=== PATIENT | female | born 1960 | race Caucasian/White ===

== ENCOUNTER 2017-07-27 10:15 | Day surgery (SDC) | payer OTHER ==
[~2017-07-27] VITALS: Ht 170.2 cm; Wt 83.0 kg
[~2017-07-27 10:15] MED LIST: ADVAIR 250/28 DISKU1 IH; B-COMPLEX VIT P1 TAB PO; BISOPROLOL10 MG PO; LASIX20 MG PO; LEVOTHYROXIN0.075 MG PO; LISINOPRIL10 MG PO; MULTIPLE VITAMI1 CAP PO; POTASSIUM20 MEQ PO; VENTOLIN0.09 MG IH
[2017-07-27] MEDS ORDERED: LEVOTHYROXIN (11:06)
[2017-07-27] MEDS ORDERED: ZEBETA 5MG5 MG PO (11:08)
[2017-07-27] MEDS ORDERED: MOBIC15 MG PO (11:09)
[2017-07-27] MEDS ORDERED: ALDACTONE50 MG PO (11:10)
[2017-07-27] MEDS ORDERED: AMOXICILLIN 8751 TAB PO (11:10)
[2017-07-27] MEDS ORDERED: LIVALO2 MG PO (11:11)
[2017-07-27] MEDS ORDERED: LASIX 40MG TABL40 MG PO (11:11)
[2017-07-27] MEDS ORDERED: GLUCOPHAGE XR500 M1 PO (11:13)
[2017-07-27 11:24] VITALS: BP 114/72; PULSE 64; TEMP 97.9
[2017-07-27 12:15] VITALS: BP 99/61; PULSE 63; TEMP 97.4
[2017-07-27 12:30] VITALS: BP 98/67; PULSE 64
[2017-07-27 12:45] VITALS: BP 102/68; PULSE 62
[2017-07-27 15:32] VITALS: BP 95/57; PULSE 60
== END 2017-07-27 13:25 | disposition home or self-care (01) ==
LOC: SDCO 10:15
DX: K21.0 Gastro-esophageal reflux disease with esophagitis (principal); K57.32 Diverticulitis of large intestine without perforation or abscess without bleeding; K56.699 Other intestinal obstruction unspecified as to partial versus complete obstruction; E11.9 Type 2 diabetes mellitus without complications; J45.909 Unspecified asthma, uncomplicated; I10 Essential (primary) hypertension; E03.9 Hypothyroidism, unspecified; Z90.710 Acquired absence of both cervix and uterus; Z79.84 Long term (current) use of oral hypoglycemic drugs; Z87.11 Personal history of peptic ulcer disease; Z83.79 Family history of other diseases of the digestive system
CPT/HCPCS: J2250; J3010; J7030

== ENCOUNTER 2017-09-11 21:21 | Inpatient (IN) | payer OTHER ==
[~2017-09-11] VITALS: Ht 170.2 cm; Wt 77.7 kg
[~2017-09-11 21:21] MED LIST changes: +ALDACTONE50 MG PO; +AMOXICILLIN 8751 TAB PO; +GLUCOPHAGE XR500 M1 PO; +LASIX 40MG TABL40 MG PO; +LEVOTHYROXIN; +LIVALO2 MG PO; +MOBIC15 MG PO; +ROXICODONE 55 MG/TAB PO; +TIROSINT137 MC1 PO; +ZEBETA 5MG5 MG PO
[2017-09-11 22:00] LABS: COLLECTION METHOD CLEAN CATCH
[2017-09-11 22:02] LABS: BASO % 0.3 % (0.0-2.0); EOS # 0.2 (0.0-0.7); EOS % 1.7 % (0-4.0); GRAN # 7.3 (1.4-6.5); GRAN % 76.3 % (42.2-75.2); HEMATOCRIT 38.6 % (37.0-47.0); HEMOGLOBIN 12.4 g/dl (12.5-16.0); LYMPH # 1.4 (1.2-3.4); LYMPH % 14.7 % (20.0-51.0); MEAN CELL VOLUME 88 fl (80.0-100.0); MEAN CORPUSCULAR HEMOGLOBIN 28 pg (27.0-31.0); MEAN CORPUSCULAR HGB CONC 32 g/dl (33.0-37.0); MEAN PLATELET VOLUME 9.8 fl (7.4-10.4); MONO # 0.6 (0.1-0.6); MONO % 6.7 % (1.7-9.3); PLATELET COUNT 274 K/mm3 (130-400); WHITE BLOOD COUNT 9.6 K/mm3 (4.8-10.8)
[2017-09-11 22:10] LABS: HYALINE CAST >12 /lpf; MUCOUS Present /lpf; PH 5 (5-8); URINE APPEARANCE Clear; URINE BACTERIA None Seen /hpf; URINE BILIRUBIN Negative (NEGATIVE); URINE BLOOD Negative (NEGATIVE); URINE COLOR Yellow; URINE GLUCOSE Negative (NEGATIVE); URINE KETONE Negative (NEGATIVE); URINE LEUKOCYTE ESTERASE Negative (NEGATIVE); URINE PROTEIN(semi-quant) Negative (NEGATIVE); URINE RBC 0-2 /hpf; URINE UROBILINOGEN Negative (NEGATIVE); URINE WBC 0-2 /hpf
[2017-09-11 22:16] LABS: ADJUSTED CALCIUM 9.3 mg/dL (8.4-10.2); ALBUMIN 4.7 gm/dL (3.5-5.0); BILIRUBIN,TOTAL 0.3 mg/dL (0.0-1.0); C-REACTIVE PROTEIN 2.6 mg/dL (0.0-0.9); CALCIUM 9.9 mg/dL (8.4-10.2); CREATININE, serum 1.16 mg/dL (0.52-1.25); POTASSIUM 4.1 mmol/L (3.4-5.0); TOTAL PROTEIN 7.6 gm/dL (6.4-8.2)
[2017-09-12 03:58] VITALS: BP 76/47; PULSE 65; TEMP 97.8
[2017-09-12 09:35] VITALS: BP 100/62; PULSE 65; TEMP 98.5
[2017-09-12 14:12] VITALS: BP 100/57; PULSE 52; TEMP 98.1
== END 2017-09-12 17:40 | disposition home or self-care (01) | DRG 392 ==
LOC: COL.ER 21:21 → SURG 22:53
PROVIDERS: Emergency Medicine
DX: K57.32 Diverticulitis of large intestine without perforation or abscess without bleeding (principal); R10.32 Left lower quadrant pain
CPT/HCPCS: J1170; J1200; J1956; J2405; J7030; J7050; Q9967

== ENCOUNTER 2017-09-28 10:30 | Day surgery (SDC) | payer OTHER ==
[~2017-09-28] VITALS: Ht 170.2 cm; Wt 70.1 kg
[2017-09-28 11:15] VITALS: BP 99/71; PULSE 73; TEMP 96.9
[2017-09-28 12:05] VITALS: BP 104/71; PULSE 66; TEMP 97.7
[2017-09-28 12:20] VITALS: BP 103/72; PULSE 66
[2017-09-28 12:35] VITALS: BP 104/68; PULSE 64
[2017-09-28 12:50] VITALS: BP 98/65; PULSE 65
== END 2017-09-28 13:08 | disposition home or self-care (01) ==
LOC: SDCO 10:30
DX: K21.9 Gastro-esophageal reflux disease without esophagitis (principal); K92.1 Melena; K62.4 Stenosis of anus and rectum; E03.9 Hypothyroidism, unspecified; I11.0 Hypertensive heart disease with heart failure; I50.9 Heart failure, unspecified; J45.909 Unspecified asthma, uncomplicated; E11.9 Type 2 diabetes mellitus without complications; Z79.84 Long term (current) use of oral hypoglycemic drugs; Z90.710 Acquired absence of both cervix and uterus
CPT/HCPCS: OP; J2250; J2405; J3010; J7030

== ENCOUNTER → 2017-11-16 | Outpatient (CLI) | payer OTHER | LOC: COL.RAD 08:53 | DX: R10.32 Left lower quadrant pain (principal); Z98.0 Intestinal bypass and anastomosis status; Z90.49 Acquired absence of other specified parts of digestive tract; K57.30 Diverticulosis of large intestine without perforation or abscess without bleeding | CPT/HCPCS: J7050; Q9967 ==

== ENCOUNTER → 2018-03-15 | Outpatient (CLI) | payer OTHER | LOC: COL.RAD 12:30 | DX: E04.2 Nontoxic multinodular goiter (principal); R59.0 Localized enlarged lymph nodes ==

== ENCOUNTER → 2018-05-08 | Outpatient (CLI) | payer OTHER ==
[~2018-05-08] VITALS: Ht 167.6 cm; Wt 74.2 kg
[~2018-05-08] MED LIST changes: +CRESTOR 10MG10 MG PO
[2018-05-08 12:14] VITALS: BP 109/61; PULSE 58
[2018-05-08 14:25] VITALS: BP 116/56; PULSE 59
== END ==
LOC: COL.RAD 11:53
DX: E07.9 Disorder of thyroid, unspecified (principal); E89.0 Postprocedural hypothyroidism; Z90.49 Acquired absence of other specified parts of digestive tract; Z90.710 Acquired absence of both cervix and uterus; Z90.89 Acquired absence of other organs

== ENCOUNTER 2018-06-19 08:05 | Outpatient (RCR) | payer OTHER | END 2018-09-17 | disposition home or self-care (01) | LOC: WSST | DX: R13.12 Dysphagia, oropharyngeal phase (principal) ==

== ENCOUNTER → 2018-06-24 | Outpatient (CLI) | payer OTHER | LOC: COL.RAD 08:00 | DX: R22.1 Localized swelling, mass and lump, neck (principal); R13.10 Dysphagia, unspecified ==

== ENCOUNTER → 2018-07-22 | Outpatient (CLI) | payer OTHER | LOC: COL.RAD 13:04 | DX: K57.30 Diverticulosis of large intestine without perforation or abscess without bleeding (principal); K63.89 Other specified diseases of intestine; M41.86 Other forms of scoliosis, lumbar region; M51.36 Other intervertebral disc degeneration, lumbar region; M46.96 Unspecified inflammatory spondylopathy, lumbar region; Z90.710 Acquired absence of both cervix and uterus; Z98.890 Other specified postprocedural states; Z90.89 Acquired absence of other organs ==

== ENCOUNTER → 2018-10-07 | Outpatient (CLI) | payer OTHER ==
[2018-10-07 16:35] LABS: BASO % 0.1 % (0.0-2.0); EOS % 0.2 % (0-4.0); GRAN # 7.4 (1.4-6.5); GRAN % 85.5 % (42.2-75.2); HEMOGLOBIN 14.1 g/dl (12.5-16.0); LYMPH # 0.8 (1.2-3.4); LYMPH % 9.1 % (20.0-51.0); MEAN CELL VOLUME 87 fl (80.0-100.0); MEAN CORPUSCULAR HEMOGLOBIN 28 pg (27.0-31.0); MEAN CORPUSCULAR HGB CONC 32 g/dl (33.0-37.0); MEAN PLATELET VOLUME 9.5 fl (7.4-10.4); MONO # 0.4 (0.1-0.6); MONO % 4.2 % (1.7-9.3); PLATELET COUNT 306 K/mm3 (130-400); RED BLOOD COUNT 5.07 M/mm3 (4.10-5.30); REDCELL DISTRIBUTION WIDTH-CV 15.6 % (11.5-14.5)
[2018-10-07 16:41] LABS: CALCIUM 9.8 mg/dL (8.4-10.2); CREATININE, serum 0.9 mg/dL (0.52-1.25); POTASSIUM 4.2 mmol/L (3.4-5.0)
== END ==
LOC: COL.LAB 16:02
PROVIDERS: Physician Assistant
DX: R06.09 Other forms of dyspnea (principal)

== ENCOUNTER → 2018-10-14 | Outpatient (CLI) | payer OTHER | LOC: COL.VAS 07:57 | DX: R06.02 Shortness of breath (principal) | CPT/HCPCS: Q9967 ==

== ENCOUNTER → 2019-01-16 | Outpatient (CLI) | payer OTHER ==
[~2019-01-16] MED LIST changes: +TENORMIN 2525 MG/TAB PO; +ZOFRAN 4MG T4 MG/TAB PO
== END ==
LOC: COL.RAD 13:20
DX: K56.699 Other intestinal obstruction unspecified as to partial versus complete obstruction (principal); K57.30 Diverticulosis of large intestine without perforation or abscess without bleeding; Z90.49 Acquired absence of other specified parts of digestive tract; Z90.710 Acquired absence of both cervix and uterus

== ENCOUNTER 2019-01-17 09:07 | Day surgery (SDC) | payer OTHER ==
[~2019-01-17] VITALS: Ht 160 cm; Wt 82.0 kg
[~2019-01-17 09:07] MED LIST changes: -TENORMIN 2525 MG/TAB PO; -ZOFRAN 4MG T4 MG/TAB PO
[2019-01-17] MEDS ORDERED: TENORMIN 2525 MG/TAB PO (09:30)
[2019-01-17 09:44] VITALS: BP 108/69; PULSE 60; TEMP 97
[2019-01-17] MEDS ORDERED: ZOFRAN 4MG T4 MG/TAB PO (09:48)
[2019-01-17 11:10] VITALS: BP 93/62; PULSE 62
--- NOTE | 2019-01-17 11:10 | NUR ---
PT AMBULATES FROM CART TO BAY 8 WITH ASSISTANCE. PT DENIES C/O. VITAL SIGNS STABLE. CALL LIGHT NEXT TO PT. PT DRINKING WATER.
[2019-01-17 11:25] VITALS: BP 89/63; PULSE 60
--- NOTE | 2019-01-17 11:25 | NUR ---
PT CONTINUES TO DENY C/O. VITAL SIGNS STABLE. CALL LIGHT NEXT TO PT. DISCHARGE INSTRUCTIONS REVIEWED WITH PT AND PT . BOTH VERBALIZES UNDERSTANDING. IV DISCONTINUED. CATHETER TIP INTACT. NO REDNESS OR SWELLING. DRESSING DRY AND INTACT. PT AMBULATES TO CAR WITH CREEL CLERK WITH ASSISTANCE.
== END 2019-01-17 11:30 | disposition home or self-care (01) ==
LOC: SDCO 09:07
DX: K57.30 Diverticulosis of large intestine without perforation or abscess without bleeding (principal); K63.89 Other specified diseases of intestine; M19.90 Unspecified osteoarthritis, unspecified site; J45.909 Unspecified asthma, uncomplicated; G89.29 Other chronic pain; E11.9 Type 2 diabetes mellitus without complications; K21.9 Gastro-esophageal reflux disease without esophagitis; E03.9 Hypothyroidism, unspecified; G43.909 Migraine, unspecified, not intractable, without status migrainosus; I11.0 Hypertensive heart disease with heart failure; I50.9 Heart failure, unspecified; K27.9 Peptic ulcer, site unspecified, unspecified as acute or chronic, without hemorrhage or perforation; K56.699 Other intestinal obstruction unspecified as to partial versus complete obstruction; Z83.79 Family history of other diseases of the digestive system; Z90.710 Acquired absence of both cervix and uterus; Z90.49 Acquired absence of other specified parts of digestive tract; Z88.4 Allergy status to anesthetic agent
CPT/HCPCS: J2250; J2405; J3010; J7030

== ENCOUNTER → 2019-02-03 | Outpatient (CLI) | payer OTHER ==
[~2019-02-03] MED LIST changes: +TENORMIN 2525 MG/TAB PO; +ZOFRAN 4MG T4 MG/TAB PO
== END ==
LOC: COL.RAD 07:47
DX: R11.0 Nausea (principal); R10.9 Unspecified abdominal pain
CPT/HCPCS: A9541

== ENCOUNTER 2019-07-03 14:55 | Inpatient (IN) | payer OTHER ==
[~2019-07-03] VITALS: Ht 161.3 cm; Wt 79.2 kg
[2019-09-16] VITALS (12 sets, daily range): BP systolic 93–110; BP diastolic 49–67; PULSE 47–67; TEMP 97.7–98.3
[2019-09-16] MEDS ORDERED: PRIL40 PO (09:58)
[2019-09-16] MEDS ORDERED: GLUCOPHAGE500 MG/TAB PO (10:00)
[2019-09-16] MEDS ORDERED: MELATONIN5 M1 PO (10:02)
[2019-09-16] MEDS ORDERED: TYLENOL PM EXTR1 TA1 PO (10:03)
--- NOTE | 2019-09-16 10:34 | NUR ---
PT ADMITTED AMBULATORY TO ROOM 327. IV TO . PRE OP MEDS GIVEN ORDERED VSS WNL.
--- NOTE | 2019-09-16 14:46 | NUR ---
PT TO ROOM 327 PER BED WITH SEDRICK WEBSTER. PT IS A/O X3 LUNGS CLEAR, BOWEL SOUNDS PRESENT. HR STEADY, VSS, DRESSING TO RIGHT KNEE CDI WITH KATHY OVER DRESSING. PT DENIES PAIN OR N/V AT THIE TIME.
--- NOTE | 2019-09-17 01:48 | NUR ---
PATIENT DOING WELL THROUGHOUT NIGHT. C/O MILD TO MODERATE PAIN THROUGHOUT NIGHT. PRN DIXIE AND MORPHINE GIVEN ALONG WITH SCHEDULED TYLENOL. AMBULATED IN HALLWAY WITH STANDBY ASSIST AND WALKER. BRANDON DRAINING CLEAR YELLOW URINE. IV ABX INFUSING WITHOUT ISSUE. SALINE LOCKED. BULKY DRESSING TO R KNEE CDI. ICE APPLIED TO R KNEE. NO FURTHER NEEDS AT THIS TIME. WILL CONTINUE TO MONITOR.
[2019-09-17 04:00] VITALS: BP 83/53; PULSE 75; TEMP 98.2
--- NOTE | 2019-09-17 04:24 | NUR ---
PATIENTS BP 83/53 CALLED TO MARTINE. IV FLUIDS RESTARTED AT 100 ML/HR PER ORDERS.
[2019-09-17 07:11] LABS: HEMOGLOBIN 12.6 g/dl (12.5-16.0)
--- NOTE | 2019-09-17 07:21 | NUR ---
Report from Katie WEBSTER.
[2019-09-17 08:04] VITALS: BP 100/62; PULSE 77; TEMP 97.9
--- NOTE | 2019-09-17 08:13 | NUR ---
PATIENT SITTING UP IN BED EATING BREAKFAST. DRESSING TO RIGHT KNEE CDI WITH ICE PACK INPLACE. BP IMPROVED. AM MEDS GIVEN ORDERED. PO PAIN MEDS EFFECTIVE WITH GOOD PAIN CONTROL. SCOUT LOPEZ IN TO SEE PT THIS AM.
--- NOTE | 2019-09-17 09:05 | NUR ---
Initial visit; Patient thanked Coo for offering encouragement and prayer following her surgical procedure. Patient has a support system and seems to be doing well on this second day of hospitalization.
--- NOTE | 2019-09-17 09:15 | NUR ---
SUNDAY met with the patient to discuss discharge plan. The patient lives outside of [place] with her , Juan J (ph#[phone]). She reports independence with ADLs and has a walker, access to canes, a toliet riser, and showerchair. The patient's primary care provider is JOHN Lott and she receives her medications at [facility]. She reports no difficulties obtaining her meds. The patient does not have advanced directives and she was not interested in completing them at this time. The patient plans to return home with her and receive outpatient PT at [facility] upon discharge. No additional needs at this time.
--- NOTE | 2019-09-17 09:32 | NUR ---
PT OUT TO LIU WITH THERAPY. PAIN WELL CONTROLLED WITH PO MEDS. STEADY GAIT. PT BECAME LIGHT HEADDED AND DIAPHORETIC IN LIU. PT SAT IN RECLINER AND THEN RETURNED TO ROOM WITH THEARPY.
--- NOTE | 2019-09-17 09:51 | NUR ---
PATIENT FEELING LOOPY, EXPLAINED THAT PAIN MEDICATIONS CAN CAUSE THIS. WILL CONTINUE TO MONITOR.
--- NOTE | 2019-09-17 09:52 | NUR ---
OT WORKING WITH PT AT THIS TIME. CHARLES WAS NOTIFIED OF PT'S LIGHT HEADEDNESS.
[2019-09-17 12:43] VITALS: BP 117/69; PULSE 71; TEMP 98.2
--- NOTE | 2019-09-17 12:48 | NUR ---
PT SITTING UP IN RECLINER VISITING WITH FRIENDS AND EATING LUNCH.
[2019-09-17 17:01] VITALS: BP 112/73; PULSE 69; TEMP 98.7
--- NOTE | 2019-09-17 17:09 | NUR ---
DISCONTINUED BRANDON CATHETER AND DRESSING CHANGE COMPLETED. PT TOLERATED WELL.
--- NOTE | 2019-09-17 19:03 | NUR ---
REPORT TO RICHA WEBSTER.
[2019-09-17 20:17] VITALS: BP 121/78; PULSE 70; TEMP 98.5
--- NOTE | 2019-09-17 20:25 | NUR ---
Pt. sitting up at bedside. Pt. up to bathroom. Pt. is A&OX3, assessment complete. INT to lt. hand patent. Pt. reports pain at a 7 on pain scale, gave pain meds per orders. Dressing to rt. knee CDI. Pt. denies further needs, call light within reach.
[2019-09-17 23:38] VITALS: BP 118/62; PULSE 76; TEMP 97.7
[2019-09-18 02:39] VITALS: BP 117/74; PULSE 73; TEMP 97.8
--- NOTE | 2019-09-18 06:50 | NUR ---
awake resting in bed, bedside shift report received from DARIN Williamson
--- NOTE | 2019-09-18 07:30 | NUR ---
had breakfast and tolerated well, full assessment completed, see interventions for further info,
[2019-09-18 08:25] VITALS: BP 123/72; PULSE 72; TEMP 97.8
--- NOTE | 2019-09-18 09:30 | NUR ---
resting in bed, physical therapy in and worked with patient
--- NOTE | 2019-09-18 09:39 | NUR ---
occupational therapy in to assist patient with having a shower
--- NOTE | 2019-09-18 10:35 | NUR ---
resting in bed after having had shower, c/o pain now 02/14 and medicated with hydrocodone 5mg 2 tabs
[2019-09-18] MEDS ORDERED: NORCO 325 MG-51 TAB PO (11:01)
[2019-09-18] MEDS ORDERED: XARELTO10 MG PO (11:01)
[2019-09-18] MEDS ORDERED: SENNA-S 50 MG-81 TAB PO (11:02)
[2019-09-18] MEDS ORDERED: ROXICODONE 55 MG/TAB PO (11:02)
[2019-09-18 11:14] VITALS: BP 119/71; PULSE 70; TEMP 98.5
--- NOTE | 2019-09-18 11:50 | NUR ---
sitting up in bed having lunch, states relief of pain after pain pill
--- NOTE | 2019-09-18 13:45 | NUR ---
ambulated back to room after therapy and ready for discharge, discharge instructions given to pateint and her , verbalizes understandingy
--- NOTE | 2019-09-18 13:57 | NUR ---
discharged per WC
== END 2019-09-18 13:57 | disposition home or self-care (01) | DRG 470 ==
LOC: EDSTATUS 09-08 10:30 → SDCO 09-08 10:30 → JCC 09-16 08:50
PROVIDERS: ADMIT Orthopaedic Surgery
PROC: 0SRC0J9 Replacement of Right Knee Joint with Synthetic Substitute, Cemented, Open Approach (ICD-10-PCS; principal; 2019-09-16 11:00)
DX: M17.11 Unilateral primary osteoarthritis, right knee (principal); K57.30 Diverticulosis of large intestine without perforation or abscess without bleeding; E78.00 Pure hypercholesterolemia, unspecified; I50.9 Heart failure, unspecified; J45.909 Unspecified asthma, uncomplicated; E89.0 Postprocedural hypothyroidism; K21.9 Gastro-esophageal reflux disease without esophagitis; E11.43 Type 2 diabetes mellitus with diabetic autonomic (poly)neuropathy; K31.84 Gastroparesis; G43.909 Migraine, unspecified, not intractable, without status migrainosus; Z90.49 Acquired absence of other specified parts of digestive tract; Z90.710 Acquired absence of both cervix and uterus; Z87.01 Personal history of pneumonia (recurrent); Z88.8 Allergy status to other drugs, medicaments and biological substances; Z91.041 Radiographic dye allergy status; Z91.040 Latex allergy status
CPT/HCPCS: A4314; A9284; C1776; J0690; J2250; J2270; J2274; J2704; J7030; J7120

== ENCOUNTER → 2019-08-06 | Outpatient (CLI) | payer OTHER | LOC: COL.RAD 07-28 10:30 | DX: K76.0 Fatty (change of) liver, not elsewhere classified (principal); K31.84 Gastroparesis; R11.0 Nausea; Z87.19 Personal history of other diseases of the digestive system ==

== ENCOUNTER → 2019-09-30 | Outpatient (CLI) | payer OTHER ==
[~2019-09-30] MED LIST changes: +GLUCOPHAGE500 MG/TAB PO; +MELATONIN5 M1 PO; +NORCO 325 MG-51 TAB PO; +PRIL40 PO; +SENNA-S 50 MG-81 TAB PO; +TYLENOL PM EXTR1 TA1 PO; +XARELTO10 MG PO
== END ==
LOC: COL.VAS 10:30
DX: M17.11 Unilateral primary osteoarthritis, right knee (principal); M79.89 Other specified soft tissue disorders

== ENCOUNTER → 2020-06-25 | Outpatient (CLI) | payer OTHER | LOC: COL.RAD 10:33 | DX: E04.1 Nontoxic single thyroid nodule (principal); Z90.89 Acquired absence of other organs ==

== ENCOUNTER → 2020-11-11 | Outpatient (CLI) | payer OTHER | LOC: COL.RAD 13:43 | DX: R06.02 Shortness of breath (principal); R79.89 Other specified abnormal findings of blood chemistry | CPT/HCPCS: Q9967 ==

== ENCOUNTER → 2021-07-11 | Outpatient (CLI) | payer OTHER | LOC: COL.RAD 07:46 | DX: R90.82 White matter disease, unspecified (principal); R25.1 Tremor, unspecified ==

== ENCOUNTER → 2021-09-21 | Outpatient (CLI) | payer OTHER | LOC: COL.RAD 06:54 | DX: M48.02 Spinal stenosis, cervical region (principal); R25.1 Tremor, unspecified; H53.2 Diplopia ==

== ENCOUNTER → 2021-12-27 | Outpatient (CLI) | payer OTHER | LOC: COL.RAD 13:49 | DX: E04.1 Nontoxic single thyroid nodule (principal); E55.9 Vitamin D deficiency, unspecified; E89.0 Postprocedural hypothyroidism; Z90.49 Acquired absence of other specified parts of digestive tract ==

== ENCOUNTER 2022-03-14 18:16 | Inpatient (IN) | payer OTHER ==
[~2022-03-14] VITALS: Ht 162.6 cm; Wt 87.1 kg
[2022-03-14 19:10] LABS: COLLECTION METHOD CLEAN CATCH
[2022-03-14 19:17] LABS: MUCOUS Present (NOT PRESENT); PH 5 (5-8); URINE APPEARANCE Cloudy (CLEAR/HAZY); URINE BACTERIA Rare /hpf (NONE SEEN); URINE BILIRUBIN Negative (NEGATIVE); URINE BLOOD Negative (NEGATIVE); URINE GLUCOSE 3+ (NEGATIVE); URINE KETONE Negative (NEGATIVE); URINE LEUKOCYTE ESTERASE Negative (NEGATIVE); URINE NITRATE Negative (NEGATIVE); URINE PROTEIN(semi-quant) Negative (NEGATIVE); URINE RBC 0-2 /hpf (0-2); URINE UROBILINOGEN Negative (NEGATIVE)
[2022-03-14 19:20] LABS: MEAN CELL VOLUME 91 fl (80.0-100.0); MEAN CORPUSCULAR HGB CONC 30 g/dl (33.0-37.0); MEAN PLATELET VOLUME 10.1 fl (7.4-10.4); PLATELET COUNT 348 K/mm3 (130-400); RED BLOOD COUNT 2.74 M/mm3 (4.10-5.30); REDCELL DISTRIBUTION WIDTH-CV 14.7 % (11.5-14.5)
[2022-03-14 19:21] LABS: HEMATOCRIT 24.9 % (37.0-47.0); HEMOGLOBIN 7.5 g/dl (12.5-16.0); MEAN CORPUSCULAR HEMOGLOBIN 27 pg (27-31)
[2022-03-14 19:22] LABS: URINE COLOR Yellow (YELLOW)
[2022-03-14 19:42] LABS: ALBUMIN 3.5 gm/dL (3.4-4.8); BILIRUBIN,TOTAL 0.2 mg/dL (0.2-1.2); CALCIUM 9.4 mg/dL (8.4-10.2); CREATININE, serum 2.08 mg/dL (0.57-1.11); POTASSIUM 4.9 mmol/L (3.5-4.5); TOTAL PROTEIN 6.9 gm/dL (6.2-8.1)
[2022-03-14 19:52] LABS: BAND 2 % (0-10); EOSINOPHIL 2 % (0-4); HYPOCHROMIA 3+; LYMPHOCYTE 20 % (20.0-51.0); NEUTROPHILS 72 % (42.0-75.2); PLATELET ESTIMATE NORMAL (NORMAL)
[2022-03-14 19:53] LABS: TEAR DROP CELLS 1+
--- NOTE | 2022-03-14 22:12 | NUR ---
Pt. arrived to the floor via stretcher. Pt. able to ambulate to the bed independently. Pt. is A&OX3, assessment complete. INT to lt. ac patent. Pt. denies pain or other needs.
[2022-03-14] MEDS ORDERED: TENORMIN100 MG PO (22:15)
[2022-03-14] MEDS ORDERED: CYTOMEL 5MC5 MCG/TAB PO (23:39)
[2022-03-14] MEDS ORDERED: SYNTHROID0.175 MG PO (23:39)
[2022-03-14] MEDS ORDERED: ALDACTONE 100M100 MG PO (23:45)
[2022-03-14] MEDS ORDERED: LOTENSIN20 MG PO (23:47)
[2022-03-14] MEDS ORDERED: CARDIZEM LA180 MG PO (23:48)
[2022-03-14] MEDS ORDERED: NEURONTIN300 MG/CAP PO (23:52)
[2022-03-14] MEDS ORDERED: JARDIANCE10 PO (23:54)
[2022-03-14] MEDS ORDERED: MOBIC 7.5MG7.5 MG PO (23:57)
[2022-03-14] MEDS ORDERED: REGLAN 10MG10 MG/TAB PO (23:59)
[2022-03-15] VITALS (16 sets, daily range): BP systolic 97–120; BP diastolic 50–69; PULSE 50–86; TEMP 97.2–98.2
[2022-03-15] MEDS ORDERED: MIRALAX PA17 GM/Dose PO (00:01)
[2022-03-15] MEDS ORDERED: NEXLETOL180 MG PO (00:02)
[2022-03-15] MEDS ORDERED: PRIL40 PO (00:03)
[2022-03-15] MEDS ORDERED: PULMICORT180 MCG/Ac IH (00:10)
[2022-03-15] MEDS ORDERED: VENTOLIN0.09 MG IH (00:11)
[2022-03-15] MEDS ORDERED: DESYREL 50MG50 MG PO (00:11)
[2022-03-15] MEDS ORDERED: VOLTAREN GEL 1%1 TU TP (00:12)
[2022-03-15] MEDS ORDERED: CBD LOTION TP (00:13)
[2022-03-15] MEDS ORDERED: CENTRUM1 TA1 PO (00:14)
[2022-03-15] MEDS ORDERED: STRESS FORMULA1 T16 PO (00:14)
[2022-03-15] MEDS ORDERED: THE MEDICINE S200 M2 PO (00:15)
[2022-03-15] MEDS ORDERED: GLUCOSAMINE & C1 CA2 PO (00:30)
[2022-03-15] MEDS ORDERED: HAIRSKINNAILS PO (00:34)
[2022-03-15] MEDS ORDERED: ESTROVEN MAX400 MCG PO (00:36)
[2022-03-15] MEDS ORDERED: MASON NATURAL2000 IU PO ×2 (00:47)
[2022-03-15] MEDS ORDERED: OMEGA-3 1000 MG1 CAP PO (00:49)
[2022-03-15 01:19] LABS: HEMATOCRIT 21.4 % (37.0-47.0); HEMOGLOBIN 6.7 g/dl (12.5-16.0)
--- NOTE | 2022-03-15 01:44 | NUR ---
Lab reported low hgb. JOHN Curtis notified of critical lab
--- NOTE | 2022-03-15 06:45 | NUR ---
Report received, assumed care for day shift.
[2022-03-15 07:39] LABS: HEMOGLOBIN 7.7 g/dl (12.5-16.0)
[2022-03-15 07:45] LABS: CALCIUM 8.7 mg/dL (8.4-10.2); CREATININE, serum 1.67 mg/dL (0.57-1.11); MAGNESIUM 2.5 mg/dL (1.6-2.6); POTASSIUM 5.5 mmol/L (3.5-4.5)
--- NOTE | 2022-03-15 10:15 | NUR ---
PT RESTING IN BED. PLAN ON COLONOSCOPY LATER TODAY. BOWEL PREP COMPLETE.
--- NOTE | 2022-03-15 10:18 | NUR ---
SUNDAY met with the patient to discuss discharge plan. The patient lives outside of [place] with her , Sonu (ph#[phone]). She reports independence with ADLs and has a showerseat. The patient's primary care provider is JOHN Lott and she receives her medications from [facility]. She reports no difficulties obtaining her meds. The patient does not have a DPOA-HC in EMR, but she states that she does have one completed and that she designated her . The patient plans on returning home with her upon discharge. No additional needs at this time. *Discharge plan: home with *
--- NOTE | 2022-03-15 10:35 | NUR ---
Initial visit; Patient thanked Drilling Machine Runner for coming in to visit and offer encouragement, prayer and Spiritual Care in general. Patient very sweet and appears somewhat concerned about her own health. Drilling Machine Runner planned to follow-up however patient is discharged.
--- NOTE | 2022-03-15 11:45 | NUR ---
PT TO SURGERY PER BED WITH ANDREY WEBSTER ENDO.
[2022-03-15 13:27] LABS: HEMATOCRIT 22.1 % (37.0-47.0); HEMOGLOBIN 7.1 g/dl (12.5-16.0)
[2022-03-15 19:16] LABS: HEMATOCRIT 25.2 % (37.0-47.0); HEMOGLOBIN 8.1 g/dl (12.5-16.0)
--- NOTE | 2022-03-15 21:00 | NUR ---
PT IN BED, IS ALERT AND ORIENTED X4. TAKING PO FLUIDS WELL, IVF CAPPED, INT SITE TO LEFT AC FLUSHES WELL. DENIES FURTHER RECTAL BLEEDING, REPORTED TO PT HGB=8.1. TELEMETRY SHOWS SR.
[2022-03-16 00:30] VITALS: BP 110/64; PULSE 87; TEMP 98.4
[2022-03-16 04:06] VITALS: BP 106/63; PULSE 91; TEMP 98.1
--- NOTE | 2022-03-16 05:45 | NUR ---
NO BLOODY STOOLS THIS SHIFT. DENIES PAIN.
[2022-03-16 06:18] LABS: MEAN CELL VOLUME 89 fl (80.0-100.0); MEAN CORPUSCULAR HGB CONC 31 g/dl (33.0-37.0); RED BLOOD COUNT 2.84 M/mm3 (4.10-5.30)
[2022-03-16 06:28] LABS: HEMATOCRIT 25.2 % (37.0-47.0); HEMOGLOBIN 7.9 g/dl (12.5-16.0); MEAN CORPUSCULAR HEMOGLOBIN 28 pg (27-31); PLATELET COUNT 218 K/mm3 (130-400)
[2022-03-16 06:37] LABS: CALCIUM 9.1 mg/dL (8.4-10.2); CREATININE, serum 1.22 mg/dL (0.57-1.11)
--- NOTE | 2022-03-16 06:47 | NUR ---
awake resting in bed, bedside shift report received from DARIN Trevizo
[2022-03-16 07:17] VITALS: BP 111/62; PULSE 88; TEMP 98.1
--- NOTE | 2022-03-16 07:25 | NUR ---
full assessment completed, see interventions for further info, will order breakfast soon, denies needs at this time
[2022-03-16 07:32] LABS: BAND 3 % (0-10); EOSINOPHIL 1 % (0-4); LYMPHOCYTE 11 % (20.0-51.0); NEUTROPHILS 80 % (42.0-75.2); NUCLEATED RED BLOOD CELL 3 (0-6); POLYCHROMASIA 1+
[2022-03-16 07:33] LABS: HYPOCHROMIA 1+; OVALOCYTES 1+
--- NOTE | 2022-03-16 09:00 | NUR ---
patient asking abaout atenolol that she feels her heart rate speeds up every time she is up and moving, will follow up with hospitalist
[2022-03-16] MEDS ORDERED: ASPIRIN E.C. 8181 MG PO (09:48)
--- NOTE | 2022-03-16 10:31 | NUR ---
Dr Harper and care team in to see patient, order received for atenolol and cardizem, heart rate via telemetry mid to high 100s, meds given, patient encouraged to rest in bed
--- NOTE | 2022-03-16 11:10 | NUR ---
resting in bed, states feels better but everytime gets up to move around heart rate increases
[2022-03-16 11:30] VITALS: BP 111/68; PULSE 96; TEMP 97.6
--- NOTE | 2022-03-16 13:00 | NUR ---
sitting up in bed eating lunch
--- NOTE | 2022-03-16 14:01 | NUR ---
restign in bed looking at TV
--- NOTE | 2022-03-16 14:25 | NUR ---
continues to rest in bed, heart rate continues to be 100s-120s when up and moving about, even some shortness of breath when heart rate tachy, Dr Harper notified, will cancel discharge, patient notified and is more comfortable with staying another day than going home with the way she feels
[2022-03-16 15:39] LABS: HEMATOCRIT 25.7 % (37.0-47.0); HEMOGLOBIN 8.4 g/dl (12.5-16.0)
[2022-03-16 15:57] VITALS: BP 102/60; PULSE 96; TEMP 97.9
--- NOTE | 2022-03-16 16:40 | NUR ---
was up and had shower and feels better, cardipulmonary in and EKG completed, rate was 97 at that time and now at rest it is back up to 120, she is resting in bed
--- NOTE | 2022-03-16 17:42 | NUR ---
resting in bed waiting for supper
--- NOTE | 2022-03-16 18:58 | NUR ---
bedside shift report given to DARIN Rowland
[2022-03-16 20:21] VITALS: BP 112/67; PULSE 104; TEMP 98.4
--- NOTE | 2022-03-16 21:28 | NUR ---
Pt. laying in bed. Pt. is A&OX3, assessment complete. INT to lt. ac patent. PT. reports headache pain at a 4. JOHN Curtis notified. Order received for Tylenol. Gave med. Pt. denies further needs, Call light within reach.
[2022-03-17 00:18] VITALS: BP 114/57; PULSE 88; TEMP 98.1
[2022-03-17 04:27] VITALS: BP 116/74; PULSE 82; TEMP 97.4
--- NOTE | 2022-03-17 06:05 | NUR ---
PT. SPENT UNEVENTFUL NIGHT SLEEPING. NO NEEDS.
[2022-03-17 06:30] LABS: BASO % 0.2 % (0.0-2.0); EOS # 0.2 K/mm3 (0.0-0.7); GRAN # 6.7 K/mm3 (1.4-6.5); GRAN % 77.1 % (42.2-75.2); MEAN CELL VOLUME 90 fl (80.0-100.0); MEAN CORPUSCULAR HGB CONC 31 g/dl (33.0-37.0); MEAN PLATELET VOLUME 10.1 fl (7.4-10.4); MONO # 0.6 K/mm3 (0.1-0.6); MONO % 7.4 % (1.7-9.3); PLATELET COUNT 206 K/mm3 (130-400); RED BLOOD COUNT 2.85 M/mm3 (4.10-5.30); REDCELL DISTRIBUTION WIDTH-CV 14.7 % (11.5-14.5)
[2022-03-17 06:35] LABS: HEMATOCRIT 25.5 % (37.0-47.0); HEMOGLOBIN 7.9 g/dl (12.5-16.0); MEAN CORPUSCULAR HEMOGLOBIN 28 pg (27-31)
[2022-03-17 06:50] LABS: CALCIUM 9.2 mg/dL (8.4-10.2); CREATININE, serum 1.05 mg/dL (0.57-1.11); POTASSIUM 4.7 mmol/L (3.5-4.5)
[2022-03-17 07:30] VITALS: BP 110/64; PULSE 87; TEMP 97.9
--- NOTE | 2022-03-17 08:00 | NUR ---
PATIENT IS A&O. VSS ON TELE. HR IN THE 80'S IN SR. PATIENT REPORTS SHES TIRED THIS AM BUT OTHERWISE FEELS MUCH BETTER. NO REPORTS OF BLOOD STOOLS. ABD IS ROUND, SOFT AND WITH POSITIVE BOWL SOUNDS. NO C/O N/V. PATIENT DID EXPRESS SOME CONCERN ABOUT GETTING BACK ON HER DAILY MIRILAX DUE TO HER GI HX. NURSING WILL TALKE WITH HOSPITALIST TEAM ABOUT THIS DURING AM ROUNDS. HEAD TO TOE ASSESSMENT COMPLETE. BREAKFAST TRAY ORDERED. AM MEDS GIVEN. LEFT AC IV TO INT. NO OTHER NEEDS AT THIS TIME. CALL LIGHT IN REACH.
--- NOTE | 2022-03-17 10:08 | NUR ---
Follow-up visit; Patient having heart beats out of rhythm and hopes that once her meds that she had to suspend use for a couple days start doing what they did for her prior to her hospitalization, she will be ok. Senior Field Engineer offered a blessing and wished her well. Senior Field Engineer will look in on Sandra while she is hospitalized.
--- NOTE | 2022-03-17 10:15 | NUR ---
HOSPITALIST TEAM ROUNDING, SEE ORDERS.
--- NOTE | 2022-03-17 11:00 | NUR ---
PATIENT GIVEN PRN MIRILAX IN DECAF COFFEE PER HER REQUEST. THIS IS HOW SHE TAKES IT AT HOME. DC'D LEFT AC IV AND COVERED SITE WITH GAUZE & TAPE FOR PENDING DISCHARGE. PATIENT RESTING UP IN BED WITH NO NEEDS. PATIENT TOLD SHE CAN CALL HER FOR DISCHARGE ANYTIME.
--- NOTE | 2022-03-17 12:30 | NUR ---
PATIENT'S HERE. GAVE DISCHARGE INSTRUCTIONS AND DISCUSSED F/U APTS. ANSWERED QUESTIONS/CONCERNS. TELE DC'D. LEFT AC IV ALREADY DC'D AND COVERED. PATIENT FINISHING GETTING DRESSED AND PACKED AND WILL CALL FOR A WC WHEN READY TO GO DOWN TO PRIVATE VEHICLE.
--- NOTE | 2022-03-17 12:43 | NUR ---
PATIENT CALLED AND IS READY TO BE ESCORTED OUT. PATIENT DISCHARGED.
== END 2022-03-17 12:44 | disposition home or self-care (01) | DRG 378 ==
LOC: COL.ER 18:16 → SURG 20:22
PROVIDERS: Emergency Medicine; Internal Medicine Gastroenterology; Student in an Organized Health Care Education/Training Program; ADMIT Student in an Organized Health Care Education/Training Program
PROC: 0W3P8ZZ Control Bleeding in Gastrointestinal Tract, Via Natural or Artificial Opening Endoscopic (ICD-10-PCS; principal; 2022-03-15 12:00)
DX: K57.31 Diverticulosis of large intestine without perforation or abscess with bleeding (principal); N17.9 Acute kidney failure, unspecified; D62 Acute posthemorrhagic anemia; I50.30 Unspecified diastolic (congestive) heart failure; E03.9 Hypothyroidism, unspecified; K21.9 Gastro-esophageal reflux disease without esophagitis; K64.0 First degree hemorrhoids; E87.5 Hyperkalemia; I11.0 Hypertensive heart disease with heart failure; F45.8 Other somatoform disorders; E11.9 Type 2 diabetes mellitus without complications; M19.90 Unspecified osteoarthritis, unspecified site; Z79.84 Long term (current) use of oral hypoglycemic drugs; Z90.49 Acquired absence of other specified parts of digestive tract; Z88.1 Allergy status to other antibiotic agents; Z90.710 Acquired absence of both cervix and uterus; Z23 Encounter for immunization
CPT/HCPCS: 99223-AI; 99232-AI; 99233-AI; 99239; J1815; J2405; J2704; J2765; J7030; J7050; P9016

== ENCOUNTER → 2022-11-29 | Outpatient (CLI) | payer OTHER ==
[~2022-11-29] MED LIST changes: +ALDACTONE 100M100 MG PO; +ASPIRIN E.C. 8181 MG PO; +CARDIZEM LA180 MG PO; +CBD LOTION TP; +CENTRUM1 TA1 PO; +CYTOMEL 5MC5 MCG/TAB PO; +DESYREL 50MG50 MG PO; +ESTROVEN MAX400 MCG PO; +GLUCOSAMINE & C1 CA2 PO; +HAIRSKINNAILS PO; +JARDIANCE10 PO; +LOTENSIN20 MG PO; +MASON NATURAL2000 IU PO; +MIRALAX PA17 GM/Dose PO; +MOBIC 7.5MG7.5 MG PO; +NEURONTIN300 MG/CAP PO; +NEXLETOL180 MG PO; +OMEGA-3 1000 MG1 CAP PO; +PULMICORT180 MCG/Ac IH; +REGLAN 10MG10 MG/TAB PO; +STRESS FORMULA1 T16 PO; +SYNTHROID0.175 MG PO; +TENORMIN100 MG PO; +THE MEDICINE S200 M2 PO; +VOLTAREN GEL 1%1 TU TP
== END ==
LOC: COL.PUL 07:17
DX: Z86.718 Personal history of other venous thrombosis and embolism (principal)
CPT/HCPCS: Q9967

== ENCOUNTER → 2023-11-05 | Outpatient (CLI) | payer OTHER | LOC: COL.RAD 08:30 | DX: I82.431 Acute embolism and thrombosis of right popliteal vein (principal); I82.411 Acute embolism and thrombosis of right femoral vein; I26.92 Saddle embolus of pulmonary artery without acute cor pulmonale ==

== ENCOUNTER → 2023-11-15 | Outpatient (CLI) | payer OTHER | LOC: COL.RAD 12:16 | DX: M47.26 Other spondylosis with radiculopathy, lumbar region (principal); M48.061 Spinal stenosis, lumbar region without neurogenic claudication; M41.86 Other forms of scoliosis, lumbar region ==

== ENCOUNTER → 2024-02-08 | Outpatient (CLI) | payer OTHER | LOC: COL.RAD 11:10 | DX: E03.9 Hypothyroidism, unspecified (principal); Z90.89 Acquired absence of other organs ==

== ENCOUNTER → 2024-07-14 | Outpatient (CLI) | payer OTHER | LOC: COL.RAD 15:47 | DX: M47.22 Other spondylosis with radiculopathy, cervical region (principal); M50.30 Other cervical disc degeneration, unspecified cervical region ==

== ENCOUNTER → 2024-07-25 | Outpatient (CLI) | payer OTHER ==
[~2024-07-25] MED LIST changes: +Iohexol 300 - 100 ML VIAL IV ONE; +NS 100 ML IV SCH
== END ==
LOC: COL.RAD 07:58
DX: K62.5 Hemorrhage of anus and rectum (principal); R10.32 Left lower quadrant pain
CPT/HCPCS: Q9967